=== PATIENT | male | born 2000 | race Caucasian/White ===

== ENCOUNTER 2021-09-08 13:10 | Emergency (ER) | payer OTHER, SELFPAY ==
[2021-09-08 13:52] VITALS: BP 122/56; PULSE 61; RESP 14; TEMP 36.1; O2SAT 100
--- NOTE | 2021-09-08 16:35 | ED.GENADULT ---
HPI - General Adult General Chief complaint: Skin/Abscess/Foreign Body Stated complaint: bumps under armpit and pubic area Time Seen by Provider: 09/08/21 16:04 Source: patient Mode of arrival: ambulatory Limitations: no limitations History of Present Illness HPI narrative: 21-year-old otherwise healthy here with complaints of swelling in his left axilla and mid right groin on and off for past several months. However at this time he does not have the swelling. He also states that he has erectile dysfunction wants testosterone levels drawn. He denies any fever or chills no history of any night sweats or loss of weight. Onset (ago): week(s) (4) Radiation: non-radiation Severity: mild Relieving factors: none Exacerbating factors: none Associated symptoms: denies other symptoms Related Data Home Medications Medication Instructions Recorded Confirmed No Home Medications 09/08/21 09/08/21 Allergies Allergy/AdvReac Type Severity Reaction Status Date / Time Sulfa (Sulfonamide Allergy Hives Verified 09/08/21 13:53 Antibiotics) Review of Systems Review of Systems: All systems reviewed & are unremarkable except as noted in HPI and below Constitutional: Constitutional: Reports no additional constitutional complaints Eyes: Eyes: Reports no additional eye complaints ENT: Reports system reviewed and no additional complaints, except as documented Cardiovascular: Cardiovascular: Reports no additional cardiovascular complaints Respiratory: Respiratory: Reports no additional respiratory complaints Gastrointestinal: Gastrointestinal: Reports no additional gastrointestinal complaints Genitourinary: Genitourinary: Reports as per HPI Musculoskeletal: Musculoskeletal: Reports no additional musculoskeletal complaints Integumentary/Breasts: Skin/Breast: Reports system reviewed and no additional complaints, except as docu Exam Narrative: GENERAL: Well-appearing, well-nourished, and in no acute distress. HEAD: Normocephalic, atraumatic. EYES: PERRLA and EOMI. NECK: Supple. CHEST: Clear to auscultation. No respiratory distress. HEART: Regular rate and rhythm. No murmur heard. Normal peripheral pulses. ABDOMEN: Soft, nontender, nondistended, normal active bowel sounds. EXTREMITIES: Normal range of motion. No edema. SKIN: Warm, dry, no rash. No evidence of any swelling or lymph node enlargement noted in the groin or in the axilla. NEURO: No focal deficits. Alert and oriented x3. PSYCH: Normal mood and affect. Course Course Emergency Course: His physical exam is unremarkable however I have informed him the testosterone levels and erectile dysfunction has to be addressed by a urologist or primary doctor. Vital Signs Vital signs: Vital Signs Temperature 36.1 C L 09/08/21 13:52 Pulse Rate 61 09/08/21 13:52 Respiratory Rate 14 09/08/21 13:52 Blood Pressure 122/56 L 09/08/21 13:52 Pulse Oximetry 100 09/08/21 13:52 Temperature 36.1 C L 09/08/21 13:52 Pulse Rate 61 09/08/21 13:52 Respiratory Rate 14 09/08/21 13:52 Blood Pressure 122/56 L 09/08/21 13:52 Pulse Oximetry 100 09/08/21 13:52 Medical Decision Making Vital Signs Vital Signs: Vital Signs Temperature 36.1 C L 09/08/21 13:52 Pulse Rate 61 09/08/21 13:52 Respiratory Rate 14 09/08/21 13:52 Blood Pressure 122/56 L 09/08/21 13:52 Pulse Oximetry 100 09/08/21 13:52 Temperature 36.1 C L 09/08/21 13:52 Pulse Rate 61 09/08/21 13:52 Respiratory Rate 14 09/08/21 13:52 Blood Pressure 122/56 L 09/08/21 13:52 Pulse Oximetry 100 09/08/21 13:52 Discharge Plan Discharge Clinical Impression: ED (erectile dysfunction) Patient Disposition: Home, Self-Care Condition: Stable Instructions: Antibiotic Form Prescriptions: No Action No Home Medications RF: 0 Follow-up/Referrals: PHYSICIAN NOT ON STAFF,NONSTAFF [Primary Care Provider] - Mark Grossman MD [Physician] -
[2021-09-08 16:50] VITALS: BP 128/61; PULSE 66; RESP 12; O2SAT 99
== END 2021-09-08 16:50 | disposition home or self-care (01) ==
LOC: ANHED 16:57
PROVIDERS: Emergency Provider Family Medicine
DX: N52.9 Male erectile dysfunction, unspecified (principal)
CPT/HCPCS: 99281